=== PATIENT | male | born 1955 | race Caucasian/White ===

== ENCOUNTER → 2017-01-20 | Outpatient (CLI) | payer OTHER ==
--- NOTE | 2017-01-20 14:33 | CT ---
HISTORY: Hematuria Study: CT abdomen and pelvis without contrast Comparison: None Technique: Multiple axial images of the abdomen and pelvis were obtained from the lung bases to the pubic symphy sis without the administration of IV contrast. Automated dose control was utilized. Findings: There is a questionable tiny 2 mm pleural-based nodule along the right middle lobe anteriorly and a 5 mm subpleural nodule along the right lower lobe posteriorly. The liver and spleen are normal size an d density. The gallbladder, pancreas , and adrenals are normal. There is an ill-defined heterogeneous soft tissue mass along the upper pole of the right kidney extending posteriorly . The margins are wh ich are ill-defined but measures approximately 8.6 x 7 cm . This may represent a solid mass . There i s no hydronephrosis or renal stones. There is a 3.5 cm cyst along the upper pole left kidney laterall y with smaller cysts more inferiorly on the left. There are extensive diverticula throughout the sigm oid colon with no pericolonic inflammation. The prostate gland is slightly enlarged and the bladder i s unremarkable. There is a 1.3 cm umbilical hernia with no bowel loops in the hernia. Degenerative ch anges are seen throughout the spine. IMPRESSION: 8.6 cm soft tissue mass along the upper pole of the right kidney which could represent a neoplasm . R ecommend a followup CT scan of the chest with contrast to further characterize this mass . Small renal cysts on the left with no hydronephrosis and no urinary obstruction. Small pulmonary nodules along the right lung base, recommend a followup CT scan of the chest. Moderate diverticulosis of the sigmoid colon with no pericolonic inflammation. Mild prostatic enlargement. Reported By:
== END | disposition home or self-care (01) | DRG 694 ==
LOC: RAD 13:33
PROVIDERS: ATTEND Internal Medicine
DX: N20.0 Calculus of kidney (principal); N28.1 Cyst of kidney, acquired; R91.8 Other nonspecific abnormal finding of lung field; K57.90 Diverticulosis of intestine, part unspecified, without perforation or abscess without bleeding; N40.0 Benign prostatic hyperplasia without lower urinary tract symptoms
CPT/HCPCS: 74176

== ENCOUNTER → 2017-01-21 | Outpatient (CLI) | payer OTHER ==
[~2017-01-21] MED LIST: NS 100 ML IV 100 ML IV ONE
[2017-01-21 12:02] LABS: CREATININE 1.38 mg/dL (0.70-1.30)
--- NOTE | 2017-01-21 15:23 | CT ---
HISTORY: Pulmonary nodules Study: CT chest with contrast Comparison: 01/20/2017 Technique: Multiple axial images of the chest were obtained from the thoracic inlet to the upper abdo men after the administration of IV contrast. Automated dose control was utilized. Findings: The thyroid gland is unremarkable. The aorta and pulmonary arteries are normal caliber with no fillin g defects. There small lymph nodes in the AP window measuring up to 7 mm. There are some mildly enlar ged pretracheal lymph nodes with the largest inferiorly measuring 1.4 cm. There is a small subcarinal lymph node. There is a heterogeneously enhancing mass along the right kidney posteriorly . The reid ns are ill-defined . The mass measures approximately 8 cm and is only partially visualized. The adren als are normal and the visualized upper abdomen is otherwise unremarkable. There is no axillary adeno chapin. There is a 3 mm subpleural nodule along the right upper lobe laterally and inferiorly and ther e is a 5 mm pleural-based nodule along the right lung base laterally which is more apparent . There i s a 4 mm nodule along the right middle lobe anteriorly which is unchanged. There is a tiny 3 mm subpl eural nodule right lower lobe. The left lung is clear. There is no consolidation or effusion. Degener ative changes are seen throughout the spine with no aggressive osseous lesion. IMPRESSION: Tiny pulmonary nodules scattered in the right lung which could represent early metastatic disease wit h no acute infiltrate or effusion. Mild mediastinal adenopathy which could represent early metastatic disease . 9 cm , partially visualized , enhancing mass along the right kidney superiorly which was seen on the prior CT scan and is suspicious for renal cell carcinoma. Recommend a followup CT scan of the abdomen and kidneys to allow complete characterization of the mass. Reported By:
== END | disposition home or self-care (01) | DRG 696 ==
LOC: RAD 11:22
PROVIDERS: ATTEND Internal Medicine
DX: R93.429 Abnormal radiologic findings on diagnostic imaging of unspecified kidney (principal); R91.8 Other nonspecific abnormal finding of lung field; R59.0 Localized enlarged lymph nodes; N28.89 Other specified disorders of kidney and ureter
CPT/HCPCS: 36415; 71260; 82565; 84520; A4222